=== PATIENT | male | born 2000 | race Caucasian/White ===

== ENCOUNTER → 2018-07-23 | Outpatient (CLI) | payer OTHER ==
[2018-07-23 17:29] LABS: BASOPHIL % 0.1 % (0-2); PLATELET COUNT 298 x10^3mcL (130-400); RED CELL DISTRIBUTION WIDTH 13.2 % (11.5-14.5)
[2018-07-23 17:35] LABS: UA SPECIFIC GRAVITY >=1.030 (1.005-1.035); microscopic required? YES; urine erythrocyte NEGATIVE (NEGATIVE)
[2018-07-23 17:37] LABS: ALBUMIN 5.4 g/dL (3.4-5.0); ALKALINE PHOSPHATASE 84 U/L (46-116); ALT/SGPT 22 U/L (16-63); AST/SGOT 17 U/L (15-37); BILIRUBIN TOTAL 1.37 mg/dL (0.20-1.00); CALCIUM 9.7 mg/dL (8.5-10.1); CARBON DIOXIDE 23.6 mmol/L (21-32); CHLORIDE SERUM 102 mmol/L (98-107); CHOLESTEROL 144 mg/dL (<200); CREATININE SERUM 1.1 mg/dL (0.7-1.3); GFR1 > 60 mL/min; GLUCOSE SERUM 102 mg/dL (74-106); HDL CHOLESTEROL 36 mg/dL (40-60); POTASSIUM SERUM 3.7 mmol/L (3.5-5.1); SODIUM SERUM 139 mmol/L (136-145); TOTAL PROTEIN, SERUM 9.3 g/dL (6.4-8.2); TRIGLYCERIDES 53 mg/dL (<150)
[2018-07-23 17:44] LABS: C REACTIVE PROTEIN 0.2 mg/dL (<=0.9)
[2018-07-23 17:45] LABS: FREE T4 1.27 ng/dL (0.76-1.46); FREE THYROXINE INDEX 3.3 ug/dL (1.4-4.5); T4(THYROXINE) 9.1 ug/dL (4.7-13.3)
[2018-07-23 17:48] LABS: T3 TOTAL 0.96 ng/mL
[2018-07-23 18:29] LABS: ERYTHROCYTE SED RATE 4 mm/hr (0-15)
== END | disposition home or self-care (01) ==
LOC: LB 16:58
DX: M62.838 Other muscle spasm (principal); R00.0 Tachycardia, unspecified; R42 Dizziness and giddiness; R82.4 Acetonuria; R94.31 Abnormal electrocardiogram [ECG] [EKG]
CPT/HCPCS: 84439